=== PATIENT | female | born 1970 | race Caucasian/White ===

== ENCOUNTER 2016-11-02 11:03 | Emergency (ER) | payer OTHER ==
[~2016-11-02] VITALS: Ht 160 cm; Wt 61.2 kg
[2016-11-02 11:23] VITALS: BP 141/92
--- NOTE | 2016-11-02 11:42 | NUR ---
Patient ambulated to bed 7 with family. RN evaluating patient at bedside.
--- NOTE | 2016-11-02 11:49 | NUR ---
PATIENT PRESENTS TO ED WITH C/O HEAD ACHE X 3 MONTHS 10/10 WITH LEFT EAR PAIN X 1 WK WITH DIZZINESS; CAME BACK FROM [facility] ON 10/02/2016; TOOK TYLENOL 500MG 2000 LAST NIGHT BUT DIDN'T HELP PT;HX OF EAR PROBLEMS - BLEEDING A CHILD DON'T REMEMBER WHICH EAR. PT DENIES ANY DISCHARGES COMING OUT OF LT EAR. DENIES N/V/D; SKIN IS PINK/WARM/DRY; AAOX4 WITH EVEN AND STEADY GAIT; LUNGS CLEAR BL; HR EVEN AND REGULAR; PT DENIES ANY FEVER, CP, SOB, OR COUGH AT THIS TIME; PATIENT STATES PAIN OF 10/10 AT THIS TIME; VSS; PATIENT POSITIONED FOR COMFORT; HOB ELEVATED; BEDRAILS UP X2; BED DOWN. ER MD MADE AWARE OF PT STATUS.
--- NOTE | 2016-11-02 12:13 | NUR ---
Dr. Spear evaluating patient at bedside.
[2016-11-02 12:44] VITALS: BP 114/71
--- NOTE | 2016-11-02 12:44 | NUR ---
Patient discharged with v/s stable. Written and verbal after care instructions given and explained. Patient alert, oriented and verbalized understanding of instructions. Ambulatory with steady gait. All questions addressed prior to discharge. ID band removed. Patient advised to follow up with PMD. Rx of AMOXICILLIN AND FIORICET given. Patient educated on indication of medication including possible reaction and side effects. Opportunity to ask questions provided and answered.
== END 2016-11-02 12:44 | disposition home or self-care (01) ==
LOC: MED 11:03
DX: H66.92 Otitis media, unspecified, left ear (principal); G44.209 Tension-type headache, unspecified, not intractable
CPT/HCPCS: 99283

== ENCOUNTER 2020-09-09 17:48 | Emergency (ER) | payer OTHER ==
[~2020-09-09] VITALS: Ht 165.1 cm; Wt 64.4 kg
[2020-09-09 17:50] VITALS: BP 148/83
--- NOTE | 2020-09-09 17:58 | NUR ---
PT AMBULATED TO ER BED 7 WITH A STEADY GAIT.
--- NOTE | 2020-09-09 18:00 | NUR ---
DR MOORE AT BEDSIDE EVALUATING PATIENT
--- NOTE | 2020-09-09 18:02 | NUR ---
50 Y/O FEMALE C/O DIZZINESS, HER , GENERALIZED WEAKNESS , ABRASION WOUND BACK OF RIGHT EAR X TODAY. DENIES TRAUMA. DENIES SYNCOPE. DENIES N/V, DENIES FEVER/CHILLS. PMH: IRON DEFICIANCY NKA
[2020-09-09] MEDS ORDERED: IBUPROFEN 600 MG TAB PO ONE (18:05)
--- NOTE | 2020-09-09 18:13 | NUR ---
LAB AT BEDSIDE FOR BLOOD DRAW
[2020-09-09 18:21] LABS: BASOPHILS % (AUTO) 0.8 % (0.0-2.0); EOSINOPHILS # (AUTO) 0.1 K/uL (0-0.4); EOSINOPHILS % (AUTO) 1.7 % (0.0-4.0); HEMATOCRIT 38.8 % (36-48); HEMOGLOBIN 12.8 g/dL (12.0-16.0); LYMPHOCYTES # (AUTO) 1.8 K/uL (2.5-16.5); LYMPHOCYTES % (AUTO) 30.8 % (20.5-51.1); MEAN CORPUSCULAR HEMOGLOBIN 27 pg (27-31); MEAN CORPUSCULAR HGB CONC 33 g/dL (33-37); MEAN CORPUSCULAR VOLUME 82.9 fL (80-94); MONOCYTES # (AUTO) 0.3 K/uL (0.8-1.0); MONOCYTES % (AUTO) 5.2 % (1.7-9.3); NEUTROPHILS # (AUTO) 3.6 K/uL (1.8-7.7); NEUTROPHILS % (AUTO) 61.5 % (42.2-75.2); PLATELET COUNT (AUTO) 313 K/uL (140-450); RED BLOOD CELL COUNT(AUTO) 4.68 MIL/uL (4.20-5.40); RED CELL DISTRIBUTION WIDTH 16.3 % (11.6-13.7); WHITE BLOOD COUNT (AUTO) 5.8 K/uL (4.8-10.8)
[2020-09-09 18:50] LABS: ALBUMIN 3.9 g/dL (3.4-5.0); ANION GAP 13.7 (8-16); CARBON DIOXIDE 24.9 mmol/L (21-32); CREATININE 0.7 mg/dL (0.6-1.3); POTASSIUM 3.6 mmol/L (3.5-5.1); TOTAL BILIRUBIN 0.4 mg/dL (0.0-1.0)
[2020-09-09] MEDS ORDERED: MECLIZINE 25 MG TAB PO ONE (18:50)
--- NOTE | 2020-09-09 19:36 | NUR ---
REPORT GIVEN TO LUPE SWANSON. TRANSFER OF CARE GIVEN
--- NOTE | 2020-09-09 19:49 | NUR ---
EKG AT BEDSIDE
[2020-09-09] MEDS ORDERED: LORA10TA19 PO (20:05)
[2020-09-09] MEDS ORDERED: FLONAS NS (20:05)
[2020-09-09] MEDS ORDERED: DEXT15DR6 OP (20:05)
[2020-09-09 20:10] VITALS: BP 148/83
--- NOTE | 2020-09-09 20:10 | NUR ---
Patient discharged with v/s stable. Written and verbal after care instructions given and explained. Patient alert, oriented and verbalized understanding of instructions. Ambulatory with steady gait. All questions addressed prior to discharge. ID band removed. Patient advised to follow up with PMD. Rx of ARTIFICIAL EYE DROPS, FLONASE NASAL, AND CALRITIN given. Patient educated on indication of medication including possible reaction and side effects. Opportunity to ask questions provided and answered.
== END 2020-09-09 20:10 | disposition home or self-care (01) ==
LOC: MED 17:48
DX: R51.9 Headache, unspecified (principal); R53.81 Other malaise; R42 Dizziness and giddiness; D64.9 Anemia, unspecified; Z79.899 Other long term (current) drug therapy
CPT/HCPCS: 36415; 80053; 81025; 85025; 93005; 99283; J8597; 81002